=== PATIENT | male | born 1995 | race African-American/Black ===

== ENCOUNTER 2024-02-16 12:54 | Emergency (ER) | payer SELFPAY ==
[2024-02-16] MEDS ORDERED: predniSONE 20 MG TAB ONE (13:16)
[2024-02-16] MEDS ORDERED: FAMOTIDINE 20 MG TAB ONE (13:16)
[2024-02-16 14:01] VITALS: BP 139/100; TEMP 97.8; O2SAT 100
--- NOTE | 2024-02-16 18:03 | ER ---
Nurse's Notes [facility] Name: Ghassan Butler Age: 28 yrs Sex: Male : 1995 Arrival Date: 02/16/2024 Time: 12:54 Bed 10 Private MD: Diagnosis: Allergic contact dermatitis due to other agents Presentation: 02/15 13:02 Chief complaint: Patient states: When oil gets on his skin at work it breaks down into ll1 sores for the past two week. No fever. Coronavirus screen: Client denies travel out of the [place] in the last 14 days. At this time, the client does not indicate any symptoms associated with coronavirus-19. Ebola Screen: Patient denies travel to an Ebola-affected area in the 21 days before illness onset. Onset: The symptoms/episode began/occurred 2 week(s) ago. Anaphylaxis evaluation, no signs or symptoms of anaphylaxis were noted. Initial Sepsis Screen: Does the patient meet any 2 criteria? No. Patient's initial sepsis screen is negative. Does the patient have a suspected source of infection? No. Patient's initial sepsis screen is negative. Risk Assessment: Do you want to hurt yourself or someone else? Patient reports no desire to harm self or others. Onset of symptoms was February 02, 2024. 13:02 Method Of Arrival: Ambulatory ll1 13:02 Acuity: DARION 4 ll1 Triage Assessment: 13:03 General: Appears uncomfortable, Behavior is calm, cooperative, appropriate for age. ll1 Pain: Complains of pain in sores to body Pain currently is 4 out of 10 on a pain scale. Quality of pain is described as burning, aching. Derm: Reports pain to sores on his body. Historical: - Allergies: 13:02 No Known Allergies; ll1 - Home Meds: 13: None [Active]; ll1 - PMHx: 13: None; ll1 - PSHx: 13:02 None; ll1 - Immunization history:: Adult Immunizations up to date. - Infectious Disease History:: Denies. - Social history:: Smoking status: Patient denies any tobacco usage or history of. Screenin:[address] [facility] ED Fall Risk Assessment (Adult) History of falling in the last 3 months, as6 including since admission No falls in past 3 months (0 pts) Confusion or Disorientation No (0 pts) Intoxicated or Sedated No (0 pts) Impaired Gait No (0 pts) Mobility Assist Device Used No (0 pt) Altered Elimination No (0 pt) Score/Fall Risk Level 0 - 2 = Low Risk Oriented to surroundings, Maintained a safe environment, Educated pt \T\ family on fall prevention, incl call for assistance when getting out of bed, Assessed \T\ reinforced patient's understanding of fall precautions. Abuse screen: Denies threats or abuse. Denies injuries from another. Nutritional screening: No deficits noted. Tuberculosis screening: No symptoms or risk factors identified. Vital Signs: 13:02 BP 139 / 100; Pulse 74; Resp 17; Temp 97.8; Pulse Ox 100% on R/A; Weight 68.04 kg; ll1 Height 5 ft. 4 in. ; Pain 4/10; 13:02 Body Mass Index 25.75 (68.04 kg, 162.56 cm) ll1 13:02 Pain Scale: Adult ll1 ED Course: 12:57 Patient arrived in ED. mr 12:58 Ivelisse Goldstein FNP-C is PHCP. kb 12:58 Roverto Connor MD is Attending Physician. kb 13:01 Arm band placed on Patient placed in an exam room, on a stretcher. ll1 13:03 Triage completed. ll1 13:15 Heron Jason, JULIO CESAR is Primary Nurse. as6 13:21 Bed in low position. Call light in reach. Provided Education on: follow up. as6 13:21 No provider procedures requiring assistance completed. Patient did not have IV access as6 during this emergency room visit. Administered Medications: 13:20 Drug: predniSONE PO 20 mg PO once Route: PO; as6 13:22 Follow up: Response: No adverse reaction as6 13:20 Drug: Famotidine PO 20 mg PO once Route: PO; as6 13:22 Follow up: Response: No adverse reaction as6 Medication: 13:21 VIS not applicable for this client. as6 Outcome: 13:10 Discharge ordered by . kb 13:21 Discharged to home ambulatory, as6 13:21 Condition: stable 13:21 Discharge instructions given to patient, Instructed on discharge instructions, follow up and referral plans. medication usage, Demonstrated understanding of instructions, follow-up care, medications, Prescriptions given X 2, 13:22 Patient left the ED. as6 Signatures: Ivelisse Goldstein, BRAD RIM ROLLER OPERATOR-Nell Meehan, Reg Reg mr Nevaeh Soto, RN RN ll1 Heron Jason, JULIO CESAR RN as6
--- NOTE | 2024-02-16 18:03 | EDPHYS ---
Physician Documentation [facility] Name: Ghassan Butler Age: 28 yrs Sex: Male : 1995 Arrival Date: 02/16/2024 Time: 12:54 Bed 10 Private MD: ED Physician Roverto Connor HPI: 02/15 13:09 This 28 yrs old Black Male presents to ER via Ambulatory with complaints of Allergic kb Reaction. 13:09 Pt is a 28 year old male who presents for rash to bilateral arms that started 2 weeks kb ago. States the rash is due to contact with motor oil at work. Reports itching. States he has tried multiple things otc without relief. . Historical: - Allergies: 13:02 No Known Allergies; ll1 - Home Meds: 13:02 None [Active]; ll1 - PMHx: 13:02 None; ll1 - PSHx: 13:02 None; ll1 - Immunization history:: Adult Immunizations up to date. - Infectious Disease History:: Denies. - Social history:: Smoking status: Patient denies any tobacco usage or history of. ROS: 13:08 Constitutional: As per HPI kb Exam: 13:08 Constitutional: This is a well developed, well nourished patient who is awake, alert, kb and in no acute distress. Head/Face: Normocephalic, atraumatic. ENT: Moist Mucous membranes Cardiovascular: Regular rate Respiratory: Respirations even and unlabored. No increased work of breathing. Talking in full sentences Abdomen/GI: Soft, non-tender. No distention MS/ Extremity: Pulses equal, no cyanosis. Neurovascular intact. Full, normal range of motion. Neuro: Awake and alert, GCS 15, oriented to person, place, time, and situation. Moves all extremities. Normal gait. 13:08 Skin: consistent with contact dermatitis, on the right arm and left arm, Vital Signs: 13:02 BP 139 / 100; Pulse 74; Resp 17; Temp 97.8; Pulse Ox 100% on R/A; Weight 68.04 kg; ll1 Height 5 ft. 4 in. ; Pain 4/10; 13:02 Body Mass Index 25.75 (68.04 kg, 162.56 cm) ll1 13:02 Pain Scale: Adult ll1 MDM: 12:58 Patient medically screened. kb 13:10 Differential diagnosis: anaphylaxis, angioedema, urticaria, contact dermatitis. Data kb reviewed: vital signs, nurses notes. Counseling: I had a detailed discussion with the patient and/or guardian regarding the historical points, exam findings, and any diagnostic results supporting the discharge/admit diagnosis, the need for outpatient follow up, a family practitioner, to return to the emergency department if symptoms worsen or persist or if there are any questions or concerns that arise at home. Administered Medications: 13:20 Drug: predniSONE PO 20 mg PO once Route: PO; as6 13:22 Follow up: Response: No adverse reaction as6 13:20 Drug: Famotidine PO 20 mg PO once Route: PO; as6 13:22 Follow up: Response: No adverse reaction as6 Disposition Summary: 02/16/24 13:10 Discharge Ordered Notes: Location: Home kb Condition: Stable kb Diagnosis - Allergic contact dermatitis due to other agents kb Followup: kb - With: Emergency Department - When: As needed - Reason: Worsening of condition Followup: kb - With: Private Physician - When: 2 - 3 days - Reason: Recheck today's complaints, Continuance of care, Re-evaluation by your physician Discharge Instructions: - Discharge Summary Sheet kb - Contact Dermatitis, [id number] kb Forms: - Medication Reconciliation Form kb - Antibiotic Education kb - Prescription Opioid Use kb - Patient Portal Instructions kb - Leadership Thank You Letter kb - Work release form rg4 Prescriptions: - Pepcid 20 mg Oral Tablet - take 1 tablet ORAL route every 12 hours for 5 days; 10 tablet; Refills: 0, kb Product Selection Permitted - Prednisone 20 mg Oral tablet - take 1 tablet ORAL route once daily for 4 days; 4 tablet; Refills: 0, Product kb Selection Permitted Signatures: Ivelisse Goldstein, JANELC ESTEFANÍA-Nevaeh Jin, RN RN ll1 Heron Jason RN RN as6
== END 2024-02-16 13:22 | disposition home or self-care (01) ==
LOC: ER 12:54
DX: L23.89 Allergic contact dermatitis due to other agents (principal)
CPT/HCPCS: J7512